=== PATIENT | female | born 1960 | race Caucasian/White ===

== ENCOUNTER 2020-11-10 18:56 | Emergency (ER) | payer MEDICAID, MEDICARE, OTHER ==
[~2020-11-10 18:56] MED LIST: Rocuronium 50 MG/5 ML Vial ONE
[2020-11-10] MEDS ORDERED: LORazepam 2 MG/ML SDV IVPUSH ONE (19:16)
[2020-11-10] MEDS ORDERED: Cetirizine 10 MG Tab PO ONE (21:17)
--- NOTE | 2020-11-10 21:19 | EDM.PDOC ---
ED HPI GENERAL MEDICAL PROBLEM - General Chief Complaint: Respiratory Problem Stated Complaint: [facility] Time Seen by Provider: 11/10/20 19:00 Source of Information: Reports: EMS, Family History Limitations: Reports: Altered Mental Status (Periods of unresponsiveness) - Related Data Allergies Allergy/AdvReac Type Severity Reaction Status Date / Time No Known Allergies Allergy Verified 11/10/20 19:45 Home Meds: Home Meds Cetirizine [ZyrTEC] 10 mg PO DAILY #30 tab 11/10/20 [Rx] Social & Family History - Tobacco Use Tobacco Use Status *Q: Current Every Day Tobacco User Years of Tobacco use: 45 Packs/Tins Daily: 1 - Recreational Drug Use Recreational Drug Use: Yes Drug Use in Last 12 Months: Yes Recreational Drug Type: Reports: Marijuana/Hashish ED ROS GENERAL - Review of Systems Review Of Systems: Unable To Obtain (Patient has a trachea and is unable to verbalize but is able to mouth words when she is alert.) Reason Not Obtained: Patient has periods of unresponsiveness. HEENT: Reports: Rhinitis, Sinus Problem Respiratory: Reports: Shortness of Breath, Cough, Sputum Cardiovascular: Reports: Syncope GI/Abdominal: Reports: Nausea, Vomiting Musculoskeletal: Reports: No Symptoms Skin: Reports: Pruritis, Rash (Generalized macular rash which is quite itchy that has been ongoing for the last 2 weeks. There is one area that looks like it could be a herald patch) Neurological: Reports: Syncope Psychiatric: Reports: Agitation ED EXAM, GENERAL - Physical Exam Exam: See Below Exam Limited By: Altered Mental Status General Appearance: Anxious, Other (Episodes of unresponsiveness followed by episodes where she bolts upright and starts coughing and trying to catch her breath) Eye Exam: Bilateral Eye: EOMI, PERRL Nose: Nasal Swelling, Nasal Drainage, Clear Rhinorrhea Throat/Mouth: Other (Copious oral secretions and postnasal drip) Head: Normocephalic Neck: Other (Tracheostomy is coated in thick secretions) Respiratory/Chest: Lungs Clear, Normal Breath Sounds, Accessory Muscle Use (At times), Other (Thick secretions at the tracheostomy which were removed with suctioning) Cardiovascular: Normal Peripheral Pulses, Regular Rate, Rhythm, No Murmur Peripheral Pulses: 2+: Radial (L), Radial (R), Posterior Tibial (L), Posterior Tibial (R) GI/Abdominal: Normal Bowel Sounds, Soft, Non-Tender Back Exam: Normal Inspection, Full Range of Motion Extremities: Normal Inspection, Normal Range of Motion, No Pedal Edema, Normal Capillary Refill Neurological: Unresponsive (Episodic unresponsiveness after bouts of coughing) Psychiatric: Anxious Skin Exam: Rash (Red macular rash throughout the body with what appears to be a hair like a herald patch on the inner right thigh) Lymphatic: No Adenopathy Course - Vital Signs Last Recorded V/S: Last Vital Signs Temp 36.9 C 11/10/20 19:00 Pulse 67 11/10/20 21:07 Resp 19 11/10/20 21:07 BP 103/55 L 11/10/20 21:07 Pulse Ox 99 11/10/20 21:07 - Orders/Labs/Meds Orders: Active Orders 24 hr Category Date Time Status Chest 1V Frontal [CR] Stat Exams 11/10/20 19:01 Taken Labs: Laboratory Tests 11/10/20 11/10/20 11/10/20 Range/Units 17:30 19:35 19:35 WBC 6.2 (4.5-11.0) K/uL RBC 5.03 (3.30-5.50) M/uL Hgb 14.0 (12.0-15.0) g/dL Hct 42.7 (36.0-48.0) % MCV 85 (80-98) fL MCH 28 (27-31) pg MCHC 33 (32-36) % Plt Count 289 (150-400) K/uL Neut % (Auto) 61.1 (36-66) % Lymph % (Auto) 27.4 (24-44) % Heard % (Auto) 7.3 H (2-6) % Eos % (Auto) 3.7 (2-4) % Baso % (Auto) 0.5 (0-1) % Puncture Site Rt radial ABG pH 7.425 (7.350-7.450) ABG pCO2 35.8 (35.0-42.0) mmHg ABG pO2 67.3 L (75.0-100.0) mmHg ABG HCO3 23.0 (22.0-26.0) mmol/L ABG Total CO2 20.3 L (21.0-25.0) mmol/L ABG O2 Saturation 93.2 L (95.0-98.0) % ABG O2 Content 16.9 (15.0-23.0) %vol ABG Base Excess -0.4 mm/L ABG Hemoglobin 13.7 (12.0-16.0) g/dL ABG Oxyhemoglobin 87.3 % ABG Carboxyhemoglobin 5.6 H (0.0-1.6) % ABG Methemoglobin 0.7 % Aakash Test Pass O2 Delivery Device Room air Sodium 144 (140-148) mmol/L Potassium 3.5 L (3.6-5.2) mmol/L Chloride 107 (100-108) mmol/L Carbon Dioxide 23 (21-32) mmol/L Anion Gap 17.5 H (5.0-14.0) mmol/L BUN 10 (7-18) mg/dL Creatinine 0.8 (0.6-1.0) mg/dL Est Cr Clr Drug Dosing 54.39 mL/min Estimated GFR (MDRD) > 60 (>60) Glucose 78 (74-106) mg/dL Calcium 8.9 (8.5-10.1) mg/dL Total Bilirubin 0.3 (0.2-1.0) mg/dL AST 48 H (15-37) U/L ALT 31 (12-78) U/L Alkaline Phosphatase 85 (46-116) U/L Total Protein 7.7 (6.4-8.2) g/dL Albumin 3.6 (3.4-5.0) g/dL Globulin 4.1 H (2.3-3.5) g/dL Albumin/Globulin Ratio 0.9 L (1.2-2.2) Meds: Medications Discontinued Medications Generic Name Dose Route Start Last Admin Trade Name Freq PRN Reason Stop Dose Admin Lorazepam 1 mg 11/10/20 19:16 11/10/20 19:22 Lorazepam 2 Mg/Ml Sdv IVPUSH 11/10/20 19:17 1 mg ONETIME ONE Administration - Re-Assessments/Exams Free Text/Narrative Re-Assessment/Exam: 11/10/20 21:28 appears the major culprit to the patient's symptoms as the copious amount of rhinorrhea and oral pharyngeal secretions causing stimulation of the epiglottis making the patient cough. Because she has the tracheostomy which is relatively small is a 4 uncuffed Shiley, she starts to panic, hyperventilate, and then has a syncopal episode. I believe if we treat the secretions which are likely due to seasonal allergies secondary to the pine pollen, that we will reduce her frequency of these episodes. So my plan is to put her on cetirizine 10 mg daily and fluconazole nasal spray 2 sprays in each nostril daily. Her labs look relatively unremarkable so there is no indication that she needs to be hospitalized at this time. The patient and her significant other both are both in agreement with this plan. Indications return to the ED were discussed. Departure - Departure Time of Disposition: 21:14 Disposition: Home, Self-Care 01 Clinical Impression: Copious oral secretions, Tracheostomy in place, Pityriasis rosea Seasonal allergic rhinitis Qualifiers: Allergic rhinitis trigger: unspecified Qualified Code(s): J30.2 - Other seasonal allergic rhinitis - Discharge Information Instructions: How to Clean a Tracheostomy Tube, Adult, [id number], Allergic Rhinitis, Adult, [id number], Pityriasis Rosea Referrals: PCP,None [Primary Care Provider] - Care Plan Goals: Appears that your trouble today has been due to allergic rhinitis otherwise known as seasonal allergies. We are going to start you on cetirizine which is a long-acting allergy medicine. Please take 1 tablet daily to reduce the nasal secretions and swelling. In addition I am putting you on a nasal steroid called fluconazole which you use 2 sprays in each nostril daily. Follow-up with your primary care provider as needed. Return to the ED should develop any difficulty with breathing again. Sepsis Event Note (ED) - Focused Exam Vital Signs: Vital Signs Temp Pulse Resp BP Pulse Ox 11/10/20 21:07 67 19 103/55 L 99 11/10/20 19:48 75 19 139/79 96 11/10/20 19:15 79 19 161/85 H 95 11/10/20 19:05 83 16 173/83 H 96 11/10/20 19:00 36.9 C 84 20 162/79 H 97 - Problem List & Annotations (1) Copious oral secretions SNOMED Code(s): 30836224 Code(s): R68.89 - OTHER GENERAL SYMPTOMS AND SIGNS Status: Acute Priority: Medium Current Visit: Yes (2) Seasonal allergic rhinitis SNOMED Code(s): 242225397 Code(s): J30.2 - OTHER SEASONAL ALLERGIC RHINITIS Status: Acute Priority: Medium Current Visit: Yes Qualifiers: Allergic rhinitis trigger: unspecified Qualified Code(s): J30.2 - Other seasonal allergic rhinitis (3) Tracheostomy in place SNOMED Code(s): 948038435 Code(s): Z93.0 - TRACHEOSTOMY STATUS Status: Chronic Priority: Medium Current Visit: Yes (4) Pityriasis rosea SNOMED Code(s): 58412730 Code(s): L42 - PITYRIASIS ROSEA Status: Acute Priority: Medium Current Visit: Yes - Problem List Review Problem List Initiated/Reviewed/Updated: Yes - My Orders Last 24 Hours: My Active Orders 11/10/20 19:01 Chest 1V Frontal [CR] Stat - Assessment/Plan Last 24 Hours: My Active Orders 11/10/20 19:01 Chest 1V Frontal [CR] Stat
[2020-11-10] MEDS ORDERED: Fluticasone Propionate Nasal Spray 16 GM Bottle NASBOTH SCH (21:30)
--- NOTE | 2020-11-13 09:18 | CR ---
CHEST: Portable 11/10/2020 at 7:15 PM CLINICAL HISTORY:Episodic apnea COMPARISON:None FINDINGS: Patient has a tracheostomy tube in place. The heart size, pulmonary vascularity and hilar structures are normal. There is a 1.3 cm poorly marginated the nodular focus in the left suprahilar region. No infiltrate effusion or pneumothorax is seen. There are atherosclerotic changes in the aorta. IMPRESSION: 1.3 cm density in the left suprahilar region. This may be superimposition. Repeat 2 view chest or noncontrast CT chest should be considered Tracheostomy tube in place
== END 2020-11-10 21:51 | disposition home or self-care (01) ==
LOC: JP.ED 18:56
DX: L42 Pityriasis rosea (principal); J30.2 Other seasonal allergic rhinitis; Z93.0 Tracheostomy status; Z72.0 Tobacco use; R68.89 Other general symptoms and signs
CPT/HCPCS: 36600; 71045; 80053; 82803; 85025; 96374; 99285; A9270; J2060